=== PATIENT | male | born 1960 | race Caucasian/White ===

== ENCOUNTER 2017-01-25 08:35 | Day surgery (SDC) | payer MEDICAID ==
[2017-01-25] MEDS ORDERED: Sodium Chloride 0.9% 1,000 ML IV SCH (09:00)
[2017-01-25] MEDS ORDERED: fentaNYL 100 MCG/2 ML SDV ONE (11:57)
[2017-01-25] MEDS ORDERED: Propofol 200 MG/20 ML SDV ONE (11:57)
[2017-01-25] MEDS ORDERED: Midazolam 1 MG/ML 2 ML SDV ONE (11:57)
[2017-01-25 13:18] VITALS: BP 108/77
--- NOTE | 2017-01-28 08:58 | PROC ---
DATE OF PROCEDURE: 01/25/2017 INDICATIONS: Serjio is a 56-year-old male, comes in for a screening colonoscopy. The risks and benefits were explained. The patient was taken to the OR. ANESTHESIA: Given by nurse heater room helper. PROCEDURE IN DETAIL: During the procedure, we used 100 mcg of fentanyl and 2 mg of Versed, and 130 mg of propofol. With a gloved finger, the rectum was examined and the prostate was a grade 3/6, symmetrical, and soft. The Olympus 180 AL scope was used. With a gloved finger, the tube was placed into the rectum and advanced under direct vision. We did get to the cecum using external pressure. Upon entering the cecum, there were no abnormality noted. Upon slow retraction of the tube, noted no lesions, ulceration, or abnormality until we got right at the rectum, noted a 4 mm polyp, this was biopsied. The tube was removed. The patient tolerated the procedure well. PREOPERATIVE DIAGNOSIS: Screening colonoscopy. POSTOPERATIVE DIAGNOSIS: Polyp at the rectum. Biopsy report will be pending after it is completed by the pathologist. Jason Farrell MD /[id number]
== END 2017-01-25 13:45 | disposition home or self-care (01) ==
LOC: JP.SDS 08:35
PROVIDERS: ATTEND Internal Medicine
DX: Z12.11 Encounter for screening for malignant neoplasm of colon (principal); K62.1 Rectal polyp; I10 Essential (primary) hypertension; R53.83 Other fatigue; M79.1 Myalgia; M25.50 Pain in unspecified joint; Z79.899 Other long term (current) drug therapy
CPT/HCPCS: 45380; J2250; J2704; J3010; J7040; 88305

== ENCOUNTER 2017-04-01 19:31 | Emergency (ER) | payer MEDICAID ==
[2017-04-01 19:43] VITALS: BP 155/98
--- NOTE | 2017-04-01 20:05 | EDM.PDOC ---
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: Dressing(s) l hand Pain Score (Numeric/FACES): 3 - Related Data Allergies Allergy/AdvReac Type Severity Reaction Status Date / Time azithromycin [From Zithromax] Allergy Nausea and Verified 04/01/17 19:39 Vomiting Home Meds: Home Meds Lisinopril [Prinivil] 20 mg PO DAILY 01/23/17 [History] Triamcinolone Acetonide [IJD: Triamcinolone Acetonide 0.1% Crm] 1 applic TOP DAILY PRN 01/23/17 [History] Past Medical History HEENT History: Reports: Hard of Hearing, Impaired Vision, Other (See Below) Other HEENT History: deviated septum, wears glasses Cardiovascular History: Reports: Hypertension Respiratory History: Reports: Asthma Musculoskeletal History: Reports: Arthritis Psychiatric History: Reports: Addiction Endocrine/Metabolic History: Reports: Obesity/BMI 30+ Dermatologic History: Reports: Other (See Below) Other Dermatologic History: "sensitivity to fiberglass and concrete" - Infectious Disease History Infectious Disease History: Reports: Chicken Pox, Measles, Mumps - Past Surgical History HEENT Surgical History: Reports: Oral Surgery Other HEENT Surgeries/Procedures: wisdom teeth GI Surgical History: Reports: Hernia, Abdominal Social & Family History - Family History Family Medical History: Noncontributory - Tobacco Use Smoking Status *Q: Never Smoker Second Hand Smoke Exposure: No - Caffeine Use Caffeine Use: Reports: Coffee - Alcohol Use Days Per Week of Alcohol Use: 7 Number of Drinks Per Day: 5 Total Drinks Per Week: 35 - Recreational Drug Use Recreational Drug Use: Yes Drug Use in Last 12 Months: Yes Recreational Drug Type: Reports: Marijuana/Hashish Recreational Drug Use Frequency: Daily ED ROS GENERAL - Review of Systems Review Of Systems: See Below Constitutional: Reports: No Symptoms Musculoskeletal: Reports: No Symptoms Skin: Reports: Wound Neurological: Reports: No Symptoms ED EXAM, SKIN/RASH Exam: See Below Text/Narrative:: Examination left hand he has full range of motion of all the digits there is a 2 cm laceration palmar surface digit #4 between the DIP and PIP joint there is a 1.5 cm laceration digit #1 between the DIP and PIP joint on the palmar surface , radial pulses 2+ sensation is intact ED SKIN PROCEDURES - Laceration/Wound Repair Left Finger Lac/Wound length In cm: 2 (To wounds fingers 1 and 3 both 2 cm in length both had 4 stitches) Appearance: Subcutaneous, Linear, Clean Distal NVT: Neuro & Vascular Intact, No Tendon Injury Anesthetic Type: Digital Local Anesthesia - Lidocaine (Xylocaine): 1% Plain Local Anesthetic Volume: 2cc Skin Prep: Saline Saline Irrigation (cc's): 60 Exploration/Debridement/Repair: Wound Explored, In a Bloodless Field, Explored to Base Closed with: Sutures Suture Size: 4-0 # of Sutures: 3 Suture Type: Nylon, Interrupted Sterile Dressing Applied: Nurse Tetanus Status Addressed: Yes Complications: No Course - Vital Signs Last Recorded V/S: Last Vital Signs Temp 97.2 F 04/01/17 19:41 Pulse 70 04/01/17 19:41 Resp 18 04/01/17 19:41 BP 155/98 H 04/01/17 19:41 Pulse Ox 94 L 04/01/17 19:41 - Orders/Labs/Meds Meds: Medications Discontinued Medications Generic Name Dose Route Start Last Admin Trade Name Elijah PRN Reason Stop Dose Admin Lidocaine HCl 5 ml 04/01/17 20:05 04/01/17 20:38 Xylocaine-Mpf 1% INJECT 04/01/17 20:06 5 ml ONETIME ONE Administration Departure - Departure Time of Disposition: 20:58 Disposition: Home, Self-Care 01 Condition: Good Clinical Impression: Finger laceration Qualifiers: Encounter type: initial encounter Finger: thumb Damage to nail status: without damage Foreign body presence: without foreign body Laterality: left Qualified Code(s): S61.012A - Laceration without foreign body of left thumb without damage to nail, initial encounter Laceration of ring finger Qualifiers: Encounter type: initial encounter Damage to nail status: without damage Foreign body presence: without foreign body Laterality: left Qualified Code(s): S61.215A - Laceration without foreign body of left ring finger without damage to nail, initial encounter - Discharge Information Referrals: Jason Farrell Sr, MD [Primary Care Provider] - Forms: ED Department Discharge Additional Instructions: Suture removal in 10 days, follow wound care instruction sheet follow-up with primary care for suture removal - Assessment/Plan Plan: Assessment Acuity = acute Site and laterality = 2 cm laceration digit #1 left hand palmar surface 2 cm laceration digit #4 left hand palmar surface completely through the dermis into the subcutaneous tissue lacerations Etiology = secondary trauma with glass Manifestations = none Location of injury = Home Lab values = none Plan Suture removal in 10 days, follow wound care instruction sheet Tylenol or ibuprofen as needed Patient was in agreement with the plan all questions were answered, they were instructed to return to the emergency department or call for worsening symptoms. This note was dictated using [employer] voice recognition software please call with any questions.
[2017-04-01] MEDS ORDERED: Bacitracin Oint 1 GM U/D Packet TOP ONE (20:57)
== END 2017-04-01 21:14 | disposition home or self-care (01) ==
LOC: JP.ED 19:31
DX: S61.012A Laceration without foreign body of left thumb without damage to nail, initial encounter (principal); S61.215A Laceration without foreign body of left ring finger without damage to nail, initial encounter; I10 Essential (primary) hypertension; J45.909 Unspecified asthma, uncomplicated; M19.90 Unspecified osteoarthritis, unspecified site; E66.9 Obesity, unspecified; Z98.890 Other specified postprocedural states; Z79.899 Other long term (current) drug therapy; Z88.1 Allergy status to other antibiotic agents; W25.XXXA Contact with sharp glass, initial encounter; Z68.41 Body mass index [BMI] 40.0-44.9, adult
CPT/HCPCS: 12001; 99283-25

== ENCOUNTER 2023-01-07 05:49 | Day surgery (SDC) | payer MEDICAID ==
[2023-01-07] MEDS: Dextrose 5%-Lactated Ringers 1,000 ML IV SCH ×2 (06:05→16:33)
[2023-01-07] MEDS ORDERED: Meropenem 500 MG SDV ONE (06:33)
[2023-01-07] MEDS ORDERED: Albuterol/Ipratropium 3.0-0.5 MG/3 ML Neb Soln NEB ONE (07:07)
[2023-01-07] MEDS ORDERED: fentaNYL 250 MCG/5 ML SDV ONE (07:30)
[2023-01-07] MEDS ORDERED: Dexamethasone 4 MG/ML SDV ONE (07:30)
[2023-01-07] MEDS ORDERED: Rocuronium 50 MG/5 ML Vial ONE (07:30)
[2023-01-07] MEDS ORDERED: Glycopyrrolate 0.2 MG/ML 5 ML MDV ONE (07:30)
[2023-01-07] MEDS ORDERED: Succinylcholine 200 MG/10 ML MDV ONE (07:30)
[2023-01-07] MEDS ORDERED: Ondansetron 4 MG/2 ML SDV ONE (07:30)
[2023-01-07] MEDS ORDERED: Propofol 200 MG/20 ML SDV ONE (07:30)
[2023-01-07] MEDS ORDERED: Neostigmine Methylsulfate 1 MG/ML 5 ML Syringe ONE (07:30)
[2023-01-07] MEDS ORDERED: ePHEDrine 50 MG/ML SDV ONE (07:56)
[2023-01-07] MEDS ORDERED: Lactated Ringers 600 ML IV ONE (08:00)
[2023-01-07] MEDS ORDERED: Bupivacaine 0.5% 50 ML MDV INJECT ONE ×2 (08:19)
[2023-01-07] MEDS ORDERED: Lidocaine 1% with EPINEPHrine 1:100,000 50 ML MDV INJECT ONE ×2 (08:20)
[2023-01-07] MEDS ORDERED: Linezolid 600 MG/300 ML Premix Bag IRR ONE (08:21)
[2023-01-07] MEDS ORDERED: HYDROmorphone 1 MG/ML Syringe IV PRN (11:00)
[2023-01-07] MEDS ORDERED: Ondansetron 4 MG/2 ML SDV IVPUSH PRN (11:00)
[2023-01-07] MEDS ORDERED: HYDROmorphone 0.5 MG/0.5 ML Syringe IVPUSH PRN (11:00)
[2023-01-07] MEDS ORDERED: Hydrochlorothiazide 12.5 MG Cap PO SCH (12:00)
[2023-01-07] MEDS: HYDROmorphone 2 MG Tab PO PRN ×2 (13:31→21:42)
[2023-01-07] MEDS ORDERED: Benzocaine/Cetylpyridinium/Menthol Lozenge MUCMEM PRN (16:14)
[2023-01-07] MEDS: Acetaminophen 500 MG Tab PO SCH ×2 (16:32→21:41)
[2023-01-07] MEDS: ceFAZolin 2 GM in Premix Bag 1 BAG IV SCH ×2 (16:33→23:50)
[2023-01-07] MEDS ORDERED: Doxazosin 4 MG Tab PO SCH (21:00)
[2023-01-07] MEDS ORDERED: Lisinopril 20 MG Tab PO SCH (21:00)
[2023-01-08] MEDS: Dextrose 5%-Lactated Ringers 1,000 ML IV SCH (03:37)
[2023-01-08] MEDS: Acetaminophen 500 MG Tab PO SCH (04:55)
[2023-01-08] MEDS: HYDROmorphone 2 MG Tab PO PRN ×2 (05:10→09:31)
[2023-01-08 07:10] VITALS: BP 123/65; PULSE 75
[2023-01-08] MEDS: ceFAZolin 2 GM in Premix Bag 1 BAG IV SCH (07:11)
== END 2023-01-08 10:05 | disposition home or self-care (01) ==
LOC: JP.SDS 05:49 → JP.MS 09:15 → JP.SDS 01-08 10:05
PROVIDERS: ATTEND Surgery
DX: K40.30 Unilateral inguinal hernia, with obstruction, without gangrene, not specified as recurrent (principal); D17.5 Benign lipomatous neoplasm of intra-abdominal organs; G47.33 Obstructive sleep apnea (adult) (pediatric); J45.909 Unspecified asthma, uncomplicated; I10 Essential (primary) hypertension; E66.01 Morbid (severe) obesity due to excess calories; Z68.41 Body mass index [BMI] 40.0-44.9, adult; Z88.1 Allergy status to other antibiotic agents; Z98.890 Other specified postprocedural states; Z79.899 Other long term (current) drug therapy
CPT/HCPCS: 49507; 64740; 93005; A9270; C1713; C1781; J0131; J0330; J0690; J1100; J2020; J2185; J2405; J2704; J2710; J3010; J3490; J7120; J7121; 88302; 88304

== ENCOUNTER 2024-03-06 13:55 | Emergency (ER) | payer MEDICAID ==
[2024-03-06 14:15] VITALS: BP 127/79; PULSE 88
== END 2024-03-06 15:19 | disposition home or self-care (01) ==
LOC: JP.ED 13:55
DX: T63.441A Toxic effect of venom of bees, accidental (unintentional), initial encounter (principal); I10 Essential (primary) hypertension; J45.909 Unspecified asthma, uncomplicated; E66.9 Obesity, unspecified; Z86.16 Personal history of COVID-19; Z79.899 Other long term (current) drug therapy; Z88.1 Allergy status to other antibiotic agents
CPT/HCPCS: 99283